=== PATIENT | female | born 1980 | race Caucasian/White ===

== ENCOUNTER 2018-01-25 13:27 | Outpatient (CLI) | payer OTHER ==
--- NOTE | 2018-01-26 07:21 | MRI Report ---
Procedure Date: 01/25/2018 Accession Number: [id number] / [id number] Procedure: MRI - Knee LT W/O CPT Code: FULL RESULT: EXAM: LEFT KNEE MRI WITHOUT CONTRAST EXAM DATE: 01/25/2018 02:04 PM. CLINICAL HISTORY: PAIN IN LEFT KNEE. COMPARISON: None. TECHNIQUE: Multiplanar, multisequence T1-weighted and fluid-sensitive sequences of the knee without contrast. Other: None. FINDINGS: Bones: No fractures or subluxations. No marrow edema. No bone lesions. Articular Cartilage: There is a full-thickness cartilage fissure at the central femoral trochlea with a small focus of underlying subchondral marrow edema. The patellar articular cartilage is normal. There is diffuse thinning of the weightbearing articular cartilage at the medial compartment without a focal cartilage defect. The lateral compartment articular cartilage is normal. Medial Meniscus: The medial meniscus is intact. Lateral Meniscus: The lateral meniscus is intact. Cruciate Ligaments: The anterior and posterior cruciate ligaments are intact. Collateral Ligaments: The medial collateral and lateral collateral ligamentous structures are intact. Tendons: The quadriceps, patellar, semimembranosus, and popliteus tendons are unremarkable. Musculature: No edema or fatty atrophy. Other: No effusion. No popliteal cyst. No loose bodies. The medial and lateral retinacula are intact. The subcutaneous tissues and fat pads are unremarkable. IMPRESSION: 1. Full-thickness cartilage fissure at the central femoral trochlea with a small focus of subchondral marrow edema. 2. Diffuse thinning of the articular cartilage at the weightbearing portions of the medial compartment without a focal cartilage defect. 3. Normal cruciate and collateral ligaments. Normal menisci. [facility] MUSCULOSKELETAL RADIOLOGY SECTION
== END 2018-01-25 13:28 | disposition home or self-care (01) ==
LOC: DI 13:27
PROVIDERS: ATTEND Orthopaedic Surgery
DX: M23.92 Unspecified internal derangement of left knee (principal)